=== PATIENT | male | born 2000 | race African-American/Black ===

== ENCOUNTER 2021-04-22 11:37 | Outpatient (CLI) | payer MEDICAID | END 2021-04-22 11:38 | disposition critical access hospital (66) | LOC: EMS 11:37 | DX: Z04.1 Encounter for examination and observation following transport accident (principal); M54.50 Low back pain, unspecified | CPT/HCPCS: A0425; A0429; A0999 ==

== ENCOUNTER 2021-04-22 11:46 | Emergency (ER) | payer SELFPAY ==
[2021-04-22] MEDS ORDERED: KETOROLAC 60 MG/2 ML VIAL IM STA (12:34)
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
[2021-04-22 17:40] VITALS: BP 114/73
== END 2021-04-22 13:05 | disposition home or self-care (01) ==
LOC: ED 11:46
DX: Z04.1 Encounter for examination and observation following transport accident (principal); M54.50 Low back pain, unspecified
CPT/HCPCS: 96372; 99283; 99284